=== PATIENT | male | born 1995 | race Caucasian/White ===

== ENCOUNTER 2021-04-25 14:04 | Emergency (ER) | payer OTHER, SELFPAY ==
[~2021-04-25] VITALS: Ht 162.6 cm; Wt 74.8 kg
[2021-04-25 14:25] VITALS: BP_SYST 145
--- NOTE | 2021-04-25 14:50 | NUR ---
Keon banuelos in EDM - 04/25/21 at 2046 by [email or web address] Pt brought by self , A&Ox4, pt presents to ER with chest pain since this am, VSS, respirations even and unlabored, cap refill <3
--- NOTE | 2021-04-25 14:58 | NUR ---
Patient triaged and placed in waiting room. VSS and patient appears in no acute distress at this time. Accompanied by self , awaiting available bed, and MD notified of need for MSE.
--- NOTE | 2021-04-25 15:00 | NUR ---
Pt brought by self , A&Ox4, pt presents to ER with chest pain since this am, VSS, respirations even and unlabored, cap refill <3
--- NOTE | 2021-04-25 15:10 | NUR ---
Dr Molina evaluating patient in the triage room
[2021-04-25 15:30] VITALS: BP_SYST 145
--- NOTE | 2021-04-25 15:30 | NUR ---
Patient given written and verbal discharge instructions and verbalizes understanding. ER MD discussed with patient the results and treatment provided. Patient in stable condition. ID arm band removed. No Rx given. Patient educated on pain management and to follow up with PMD. Pain Scale 0/10 . Opportunity for questions provided and answered. Medication side effect fact sheet provided.
[2021-04-25 16:17] LABS: BASOPHILS # (AUTO) 0.1 K/uL (0.0-0.2); EOSINOPHILS # (AUTO) 0.1 K/uL (0.0-0.4); HEMATOCRIT 41.9 % (36-54); HEMOGLOBIN 14.4 g/dL (14.0-18.0); LYMPHOCYTES # (AUTO) 1.5 K/uL (1.0-5.5); LYMPHOCYTES % (AUTO) 15.9 % (20.5-51.5); MEAN CORPUSCULAR HEMOGLOBIN 32 pg (27-31); MEAN CORPUSCULAR HGB CONC 34 % (32-36); MEAN CORPUSCULAR VOLUME 92 fL (79.0-98.0); MONOCYTES # (AUTO) 0.6 K/uL (0.0-1.0); MONOCYTES % (AUTO) 6.4 % (1.7-9.3); NEUTROPHILS # (AUTO) 7.3 K/uL (1.8-7.7); NEUTROPHILS % (AUTO) 75.7 % (40.0-70.0); PLATELET COUNT (AUTO) 240 K/uL (130-430); RED BLOOD CELL COUNT(AUTO) 4.54 MIL/uL (4.2-6.2); RED CELL DISTRIBUTION WIDTH 13.2 % (9.0-15.0); WHITE BLOOD COUNT (AUTO) 9.6 K/uL (4.8-10.8)
[2021-04-25 17:09] LABS: CALCIUM 9.1 mg/dL (8.4-11.0); CREATININE 0.71 mg/dL (0.55-1.30); POTASSIUM 3.4 mmol/L (3.5-5.1)
[2021-04-25 17:21] LABS: TOTAL BILIRUBIN 0.5 mg/dL (0.0-1.0)
== END 2021-04-25 15:30 | disposition home or self-care (01) ==
LOC: SED 14:04
DX: R07.89 Other chest pain (principal); R42 Dizziness and giddiness; F12.90 Cannabis use, unspecified, uncomplicated
CPT/HCPCS: 36415; 71045; 80053; 84484; 85025; 93005; 99285